=== PATIENT | male | born 1965 | race Two or more races ===

== ENCOUNTER 2024-05-14 05:01 | Inpatient (IN) | payer BC, OTHER ==
[~2024-05-14] VITALS: Ht 172.7 cm; Wt 81.0 kg
[2024-05-14] VITALS (21 sets, daily range): BP systolic 114–153; BP diastolic 81–117; PULSE 82–118; RESP 14–85; TEMP 97.6–98.4; O2SAT 91–98
[2024-05-14] MEDS: ASPirin 81 mg TAB PO ONE (05:25)
[2024-05-14] MEDS: NITROGLYCERIN 0.4 MG SL TAB SL ONE ×2 (05:26→05:29)
[2024-05-14] MEDS: ASPirin 325 MG TAB ONE (05:29)
[2024-05-14] MEDS: HEPARIN SODIUM (PORCINE) 5000 UNITS/ML 1ML VIAL IV ONE (05:31)
[2024-05-14] MEDS: SODIUM CHLORIDE 0.9% 1,000 ML IV ONE (05:35)
[2024-05-14] MEDS: HEPARIN SODIUM (PORCINE) 5000 UNITS/ML 1ML VIAL ONE ×2 (05:39→05:53)
[2024-05-14] MEDS: MIDAZOLAM HCL 2MG/2ML 2ml VIAL (1mg/ml) ONE (05:54)
[2024-05-14] MEDS: fentaNYL CITRATE 100 MCG/2 ML VL ONE (05:54)
[2024-05-14] MEDS: LIDOCAINE 2%HCL (LOCAL ANESTH.) INJ 20ML MDV ONE (05:55)
[2024-05-14] MEDS: VERAPAMIL 2.5MG/ML INJ 2ML VIAL IV ONE (05:55)
[2024-05-14] MEDS: ANGIOMAX 250 MG VIAL IV ONE (05:57)
[2024-05-14] MEDS: SODIUM CHL 0.9% 50 ML ONE (05:57)
[2024-05-14] MEDS: IODIXANOL 320MG/ML 100ML BTL IV ONE (06:21)
[2024-05-14 06:31] LABS: Alanine Aminotransferase 52 U/L (7-40); Albumin 4.8 g/dL (3.2-4.8); Alkaline Phosphatase 112 U/L (46-116); Anion Gap 14 (5-15); Aspartate Aminotransferase 104 U/L (13-40); BUN/Creatinine Ratio 10.3 (10.0-20.0); Bilirubin, Total 0.8 mg/dL (0.2-1.0); Blood Urea Nitrogen 16 mg/dL (9-23); Calcium 10.9 mg/dL (8.7-10.4); Carbon Dioxide 21 mmol/L (20-30); Chloride 97 mmol/L (98-107); Magnesium 2.2 mg/dL (1.6-2.6); Potassium 4.4 mmol/L (3.5-5.1); Sodium 132 mmol/L (136-145); Total Protein 8.2 g/dL (5.7-8.2)
[2024-05-14] MEDS: METOPROLOL TARTRATE 1MG/1ML-5ML VIAL IV ONE (06:33)
[2024-05-14 07:07] LABS: Glucose 432 mg/dL (74-106)
[2024-05-14] MEDS: TICAGRELOR 90 MG TAB ONE (07:12)
[2024-05-14] MEDS ORDERED: NITROGLYCERIN 0.4 MG SL TAB SL PRN (07:30)
[2024-05-14] MEDS ORDERED: MORPHINE SULFATE INJ 2 MG/ml SYRG IV PRN (07:30)
[2024-05-14] MEDS ORDERED: DEXTROSE (50%) 50ML SYRG IV PRN ×2 (07:30→07:45)
[2024-05-14 08:32] LABS: Basophils # (auto) 0 10 ^3/uL (0-0.2); Eosinophils # (auto) 0 10 ^3/uL (0-0.8); Eosinophils % (auto) 0.1 % (0.0-7.0); Monocytes # (auto) 0.6 10 ^3/uL (0-1.3)
[2024-05-14 08:42] LABS: Basophils % (auto) 0.3 % (0.0-2.0); Lymphocytes # (auto) 1.2 10 ^3/uL (0.4-5.4); Lymphocytes % (auto) 8.9 % (10.0-50.0); Mean Corpuscular Hgb Conc. 34.6 g/dL (32.0-36.0); Mean Corpuscular Volume 92.4 fL (80.0-100.0); Monocytes % (auto) 4.1 % (0.0-12.0); Neutrophils # (auto) 12.1 10 ^3/uL (1.6-8.6); Neutrophils % (auto) 86.6 % (37.0-80.0); Nucleated Red Blood Cells % 0.2 %; Platelet Count (auto) 227 10^3/uL (140-450); Red Cell Distribution Width 13.3 % (11.8-14.3); White Blood Cell 13.9 10^3/uL (4.4-10.8)
[2024-05-14 08:45] LABS: Alanine Aminotransferase 63 U/L (7-40); Albumin 4.4 g/dL (3.2-4.8); Alkaline Phosphatase 105 U/L (46-116); Anion Gap 11 (5-15); Aspartate Aminotransferase 279 U/L (13-40); BUN/Creatinine Ratio 7.6 (10.0-20.0); Blood Urea Nitrogen 11 mg/dL (9-23); Calcium 9.8 mg/dL (8.7-10.4); Carbon Dioxide 16 mmol/L (20-30); Chloride 101 mmol/L (98-107); LDL Cholesterol 165 mg/dL (< 100); Sodium 128 mmol/L (136-145); Triglycerides 189 mg/dL (< 150)
[2024-05-14 08:46] LABS: Cholesterol 228 mg/dL (< 200); HDL Cholesterol 41 mg/dL (40-59)
[2024-05-14 08:47] LABS: Bilirubin, Total 0.9 mg/dL (0.2-1.0); Hematocrit 60.9 % (41.0-53.0); Hemoglobin 21.1 g/dL (13.5-17.5); Total Protein 7.9 g/dL (5.7-8.2)
[2024-05-14 08:51] LABS: Potassium 6.3 mmol/L (3.5-5.1)
[2024-05-14 08:52] LABS: Glucose 419 mg/dL (74-106)
[2024-05-14 09:04] LABS: INR 1.76 (0.9-1.15); Partial Thromboplastin Time > 139.0 SEC (24.5-34.5); Prothrombin Time 18.2 sec (9.3-11.8)
[2024-05-14] MEDS: ASPirin 81 mg TAB PO SCH (09:29)
[2024-05-14] MEDS: ATORVASTATIN 20 MG TAB PO ONE (09:29)
[2024-05-14] MEDS: LISINOPRIL 5 MG TAB PO SCH (09:30)
[2024-05-14] MEDS: CARVEDILOL 3.125 MG TAB PO SCH (09:30)
[2024-05-14 11:58] LABS: Alanine Aminotransferase 73 U/L (7-40); Albumin 4.4 g/dL (3.2-4.8); Alkaline Phosphatase 98 U/L (46-116); Anion Gap 11 (5-15); Aspartate Aminotransferase 443 U/L (13-40); BUN/Creatinine Ratio 11.9 (10.0-20.0); Bilirubin, Total 0.7 mg/dL (0.2-1.0); Blood Urea Nitrogen 16 mg/dL (9-23); Calcium 9.5 mg/dL (8.7-10.4); Carbon Dioxide 17 mmol/L (20-30); Chloride 102 mmol/L (98-107); Glucose 365 mg/dL (74-106); Sodium 130 mmol/L (136-145); Total Protein 7.5 g/dL (5.7-8.2)
[2024-05-14] MEDS ORDERED: ACCU-CHEK COMFORT CURVE STRIP VI SCH (12:00)
[2024-05-14] MEDS ORDERED: InsuLIN REG 1unit/0.01ml Soln (100units/ml) SC SCH (12:00)
[2024-05-14] MEDS: ACCU-CHEK COMFORT CURVE STRIP VI SCH (12:15)
[2024-05-14] MEDS: InsuLIN REG 1unit/0.01ml Soln (100units/ml) SC SCH ×2 (12:18→22:10)
[2024-05-14] MEDS ORDERED: LISI20TA56 PO (18:09)
[2024-05-14] MEDS ORDERED: METF-372 PO (18:09)
[2024-05-14] MEDS ORDERED: GLIP10TA9 PO (18:09)
[2024-05-14 19:51] LABS: Basophils # (auto) 0.1 10 ^3/uL (0-0.2); Basophils % (auto) 0.6 % (0.0-2.0); Eosinophils # (auto) 0.1 10 ^3/uL (0-0.8); Eosinophils % (auto) 0.8 % (0.0-7.0); Hemoglobin 20.5 g/dL (13.5-17.5); Lymphocytes # (auto) 2.3 10 ^3/uL (0.4-5.4); Lymphocytes % (auto) 19.6 % (10.0-50.0); Mean Corpuscular Hgb Conc. 34.5 g/dL (32.0-36.0); Monocytes # (auto) 1.1 10 ^3/uL (0-1.3); Monocytes % (auto) 9.5 % (0.0-12.0); Neutrophils # (auto) 8.3 10 ^3/uL (1.6-8.6); Neutrophils % (auto) 69.5 % (37.0-80.0); Nucleated Red Blood Cells % 0.2 %; Platelet Count (auto) 227 10^3/uL (140-450); Red Blood Cells 6.62 10^6/uL (4.5-5.90); Red Cell Distribution Width 13.4 % (11.8-14.3); White Blood Cell 11.9 10^3/uL (4.4-10.8)
[2024-05-14 19:52] LABS: Hematocrit 59.5 % (41.0-53.0)
[2024-05-14 20:10] LABS: Alanine Aminotransferase 81 U/L (7-40); Albumin 4.2 g/dL (3.2-4.8); Alkaline Phosphatase 93 U/L (46-116); Anion Gap 8 (5-15); Aspartate Aminotransferase 400 U/L (13-40); BUN/Creatinine Ratio 12.9 (10.0-20.0); Blood Urea Nitrogen 18 mg/dL (9-23); Carbon Dioxide 22 mmol/L (20-30); Chloride 102 mmol/L (98-107); Glucose 281 mg/dL (74-106); Sodium 132 mmol/L (136-145)
[2024-05-14 20:11] LABS: Bilirubin, Total 0.9 mg/dL (0.2-1.0); Total Protein 7.3 g/dL (5.7-8.2)
[2024-05-15] VITALS (7 sets, daily range): BP systolic 112–144; BP diastolic 70–91; PULSE 82–113; RESP 17–19; TEMP 97.8–98.6; O2SAT 95–98
[2024-05-15] MEDS: PANTOPRAZOLE 40 MG TAB PO SCH (06:28)
[2024-05-15 09:20] LABS: Basophils # (auto) 0 10 ^3/uL (0-0.2); Basophils % (auto) 0.4 % (0.0-2.0); Eosinophils # (auto) 0.2 10 ^3/uL (0-0.8); Eosinophils % (auto) 1.4 % (0.0-7.0); Hemoglobin 20.2 g/dL (13.5-17.5); Lymphocytes # (auto) 2.7 10 ^3/uL (0.4-5.4); Lymphocytes % (auto) 25.4 % (10.0-50.0); Mean Corpuscular Hemoglobin 31.5 pg (28.0-32.0); Mean Corpuscular Hgb Conc. 34.5 g/dL (32.0-36.0); Mean Corpuscular Volume 91.5 fL (80.0-100.0); Monocytes # (auto) 1.2 10 ^3/uL (0-1.3); Neutrophils # (auto) 6.6 10 ^3/uL (1.6-8.6); Neutrophils % (auto) 61.8 % (37.0-80.0); Nucleated Red Blood Cells % 0.2 %; Platelet Count (auto) 209 10^3/uL (140-450); Red Blood Cells 6.41 10^6/uL (4.5-5.90); Red Cell Distribution Width 13.5 % (11.8-14.3); White Blood Cell 10.7 10^3/uL (4.4-10.8)
[2024-05-15 09:23] LABS: Hematocrit 58.7 % (41.0-53.0)
[2024-05-15] MEDS: TICAGRELOR 90 MG TAB PO SCH (09:41)
[2024-05-15] MEDS: ATORVASTATIN 20 MG TAB PO SCH (09:44)
[2024-05-16] VITALS (8 sets, daily range): BP systolic 109–146; BP diastolic 78–93; PULSE 84–109; RESP 16–20; TEMP 98–98.6; O2SAT 93–99
[2024-05-16] MEDS ORDERED: CARV-214 PO (11:13)
[2024-05-16] MEDS ORDERED: ASPI-325 PO (11:13)
[2024-05-16] MEDS ORDERED: TICA90TA PO (11:13)
[2024-05-16] MEDS ORDERED: LISI20TA56 PO (11:13)
[2024-05-16] MEDS ORDERED: ATOR20TA50 PO (11:13)
[2024-05-16] MEDS ORDERED: ATOR-507 PO (16:19)
[2024-05-17] VITALS (8 sets, daily range): BP systolic 111–131; BP diastolic 81–94; PULSE 70–97; RESP 16–18; TEMP 97.7–98.4; O2SAT 95–99
[2024-05-18] VITALS (8 sets, daily range): BP systolic 125–153; BP diastolic 88–98; PULSE 76–96; RESP 16–18; TEMP 97.6–98.6; O2SAT 96–100
[2024-05-19] VITALS (9 sets, daily range): BP systolic 129–158; BP diastolic 92–109; PULSE 78–106; RESP 16–18; TEMP 97.6–98.6; O2SAT 96–100
[2024-05-19] MEDS: LISINOPRIL 5 MG TAB PO ONE (12:37)
[2024-05-19 13:27] LABS: Eosinophils # (auto) 0.2 10 ^3/uL (0-0.8); Lymphocytes # (auto) 1.4 10 ^3/uL (0.4-5.4); Monocytes # (auto) 0.9 10 ^3/uL (0-1.3); Monocytes % (auto) 13.3 % (0.0-12.0); Neutrophils # (auto) 4.2 10 ^3/uL (1.6-8.6)
[2024-05-19 13:30] LABS: Basophils # (auto) 0.1 10 ^3/uL (0-0.2); Basophils % (auto) 0.8 % (0.0-2.0); Eosinophils % (auto) 2.5 % (0.0-7.0); Hematocrit 53.8 % (41.0-53.0); Hemoglobin 18.7 g/dL (13.5-17.5); Lymphocytes % (auto) 21.3 % (10.0-50.0); Mean Corpuscular Hemoglobin 32.1 pg (28.0-32.0); Mean Corpuscular Hgb Conc. 34.7 g/dL (32.0-36.0); Mean Corpuscular Volume 92.5 fL (80.0-100.0); Neutrophils % (auto) 62.1 % (37.0-80.0); Nucleated Red Blood Cells % 0.1 %; Platelet Count (auto) 191 10^3/uL (140-450); Red Blood Cells 5.81 10^6/uL (4.5-5.90); Red Cell Distribution Width 13.2 % (11.8-14.3); White Blood Cell 6.8 10^3/uL (4.4-10.8)
[2024-05-19 13:38] LABS: Chloride 103 mmol/L (98-107); Potassium 4.5 mmol/L (3.5-5.1); Sodium 133 mmol/L (136-145)
[2024-05-19 13:39] LABS: Anion Gap 6 (5-15); Calcium 9.3 mg/dL (8.7-10.4); Carbon Dioxide 24 mmol/L (20-30)
[2024-05-19 13:44] LABS: BUN/Creatinine Ratio 9.8 (10.0-20.0); Blood Urea Nitrogen 13 mg/dL (9-23); Glucose 256 mg/dL (74-106)
[2024-05-19] MEDS: CARVEDILOL 3.125 MG TAB PO SCH (21:28)
[2024-05-20] VITALS (8 sets, daily range): BP systolic 118–144; BP diastolic 67–103; PULSE 69–90; RESP 16–18; TEMP 36.9–37.1; O2SAT 94–99
[2024-05-20] MEDS: LISINOPRIL 5 MG TAB PO SCH (08:44)
== END 2024-05-20 14:53 | disposition home or self-care (01) | DRG 322 ==
LOC: ER 05:01 → TELE 07:25 → TELE-CENTR 17:55
PROVIDERS: ADMIT Internal Medicine; ATTEND Internal Medicine Geriatric Medicine
PROC: 027236Z Dilation of Coronary Artery, Three Arteries with Three Drug-eluting Intraluminal Devices, Percutaneous Approach (ICD-10-PCS; principal; 2024-05-14)
PROC: B211YZZ Fluoroscopy of Multiple Coronary Arteries using Other Contrast (ICD-10-PCS; 2024-05-14)
PROC: B215YZZ Fluoroscopy of Left Heart using Other Contrast (ICD-10-PCS; 2024-05-14)
PROC: 4A023N7 Measurement of Cardiac Sampling and Pressure, Left Heart, Percutaneous Approach (ICD-10-PCS; 2024-05-14)
PROC: 3E03317 Introduction of Other Thrombolytic into Peripheral Vein, Percutaneous Approach (ICD-10-PCS; 2024-05-14)
DX: I21.09 ST elevation (STEMI) myocardial infarction involving other coronary artery of anterior wall (principal); I25.10 Atherosclerotic heart disease of native coronary artery without angina pectoris; E11.9 Type 2 diabetes mellitus without complications; F17.210 Nicotine dependence, cigarettes, uncomplicated; I10 Essential (primary) hypertension; E78.5 Hyperlipidemia, unspecified; I25.5 Ischemic cardiomyopathy; Z82.49 Family history of ischemic heart disease and other diseases of the circulatory system
CPT/HCPCS: 0523T; 92928; 92941; 93458; 99291; 36415; 71045; 80048; 80053; 80061; 82962; 83036; 83735; 83880; 84443; 84484; 85025; 85610; 85730; 93005; 93306; 99152; C1874; C1887; G0378; J1815; J2250; Q9967

== ENCOUNTER 2024-10-10 10:46 | Emergency (ER) | payer BC ==
[~2024-10-10] VITALS: Ht 172.7 cm; Wt 80.7 kg
[~2024-10-10 10:46] MED LIST: ASPI-325 PO; ATOR-507 PO; CARV-214 PO; GLIP10TA9 PO; LISI20TA56 PO; METF-372 PO; TICA90TA PO
--- NOTE | 2024-10-10 11:17 | ED.PDOC ---
HPI Comments 59 y.o male with PMHx of HTN, hyperlipidemia, DM, and ME, presents to the ED for an evaluation of high blood pressure. Patient was at his PCP's office today for a follow up s/p ME in 05/2024, was told his blood pressure was at 187/118 associated with facial drooping and was sent to the ED for high level of care. Upon ED arrival, patient presents with no facial drooping, dizziness, headaches, vision changes, chest pain, SOB, confusion, nausea, or vomiting. Patient does mention having intermittent nosebleeds this past week with last episode noted to be 2 days ago. Patient is on Brilinta. Blood pressure at ED read 189/117. Patient too his Lisinopril today at 0900. Time Seen by MD: 11:05 Reviewed Notes: Nurses Notes, Medications, Allergies Allergies: Coded Allergies: NO KNOWN ALLERGIES (Unverified , 05/14/24) Home Meds Active Scripts Atorvastatin Calcium (Lipitor) 40 Mg Tab, 1 TAB PO QPM, #90 TAB 1 Refill Prov:JEROMY SANCHEZ MD 05/16/24 Ticagrelor Base (BRILINTA) 90 Mg Tab, 90 MG PO BID, #60 TAB 5 Refills Prov:JEROMY SANCHEZ MD 05/16/24 Lisinopril (Lisinopril) 20 Mg Tab, 0.5 TAB PO DAILY, #30 TAB 5 Refills Prov:JEROMY SANCHEZ MD 05/16/24 Carvedilol (COREG) 3.125 Mg Tab, 3.125 MG PO DAILY, #30 TAB 5 Refills Prov:JEROMY SANCHEZ MD 05/16/24 Aspirin (Aspirin Low Dose) 81 Mg Tab, 81 MG PO DAILY, #30 TAB 5 Refills Prov:JEROMY SANCHEZ MD 05/16/24 Reported Medications Metformin Hydrochloride (Metformin Hcl) 1,000 Mg Tab, 1 TAB PO BID 05/14/24 Glipizide (Glipizide) 10 Mg Tab, 1 TAB PO BID 05/14/24 Information Source: Patient Mode of Arrival: Ambulatory Severity: Mild Timing: Hours Duration: Since onset Onset: Other Cardiac Risk Factors: Hyperlipidemia, HTN, Diabetes PE Risk Factors: None History of: ME Modifying Factors: Nothing Associated Signs and Symptoms: None Past Medical History PAST MEDICAL HISTORY: DM, High Lipids, HTN, ME Surgical History: PTCA Family History Family History: Reviewed,noncontributory to illness, No family hx of Cancer, No family hx of DM, No family hx of Heart [place], No family hx of HTN, No family hx ofKidney [place], No family hx of Liver [place], No family hx of Lung [place], No family hx of Stroke Social History Smoker: Non-Smoker Alcohol: Occasionally Drugs: Denies Drug Use Lives In: Home Constitutional: denies: chills, diaphoresis, fatigue, fever, malaise, sweats, weakness, others EENTM: reports: nose bleeding; denies: blurred vision, double vision, ear bleeding, ear discharge, ear drainage, ear pain, ear ringing, eye pain, eye redness, hearing loss, mouth pain, mouth swelling, nasal discharge, nose congestion, nose pain, photophobia, tearing, throat pain, throat swelling, voice changes, others Respiratory: denies: cough, hemoptysis, orthopnea, SOB at rest, shortness of breath, SOB with excertion, stridor, wheezing, others Cardiovascular: denies: chest pain, dizzy spells, diaphoresis, Dyspnea on exertion, edema, irregular heart beat, left arm pain, lightheadedness, palpitati ons, PND, syncope, others Gastrointestinal: denies: abdomen distended, abdominal pain, blood streaked bowels, constipated, diarrhea, dysphagia, difficulty swallowing, hematemesis, melena, nausea, poor appetite, poor fluid intake, rectal bleeding, rectal pain, vomiting, others Genitourinary: denies: burning, dysuria, flank pain, frequency, hematuria, incontinence, penile discharge, penile sore, pain, testicle pain, testicle swelling, urgency, others Neurological: denies: dizziness, fainting, headache, left sided numbness, left sided weakness, numbness, paresthesia, pre-existing deficit, right sided numbness, right sided weakness, seizure, speech problems, tingling, tremors, weakness, others Musculoskeletal: denies: back pain, gout, joint pain, joint swelling, muscle pain, muscle stiffness, neck pain, others Integumetry: denies: bruises, change in color, change in hair/nails, dryness, laceration, lesions, lumps, rash, wounds, others Allergic/Immunocompromised: denies: Difficulty Healing, Frequent Infections, Hives, Itching, others Hematologic/Lymphatic: denies: anemia, blood clots, easy bleeding, easy bruising, swollen glands, others Endocrine: denies: excessive hunger, excessive sweating, excessive thirst, excessive urination, flushing, intolerance to cold, intolerance to heat, unexplained weight gain, unexplained weight loss, others Psychiatric: denies: anxiety, bipolar disorder, depression, hopeless, panic disorder, schizophrenia, sleepless, suicidal, others All Other Systems: Reviewed and Negative Physical Exam General Appearance: No Apparent Distress HEENT: Normal ENT Inspection, Pharynx Normal, TMs Normal Neck: Full Range of Motion, Non-Tender, Normal, Normal Inspection Respiratory: Chest Non-Tender, Lungs Clear, No Accessory Muscle Use, No Respiratory Distress, Normal Breath Sounds Cardiovascular: No Edema, No JVD, No Murmur, No Gallop, Normal Peripheral Pulses, Regular Rate/Rhythm Breast Exam: Deferred Gastrointestinal: No Organomegaly, Non Tender, No Pulsatile Mass, Normal Bowel Sounds, Soft Genitalia: Deferred Pelvic: Deferred Rectal: Deferred Extremities: No calf tenderness, Normal capillary refill, Normal inspection, Normal range of motion, Non-tender, No pedal edema Musculoskeletal : Apperance: Normal Neurologic: Alert, manager technical II-XII nml as Tested, No Motor Deficits, Normal Affect, Normal Mood, No Sensory Deficits Cerebellar Function: Normal Reflexes: Normal Skin: Dry, Normal Color, Warm Lymphatic: No Adenopathy Was a procedure done? Was a procedure done?: No CP Differential Dx Differential Diagnosis: N/A Differential Diagnosis: HTN Essential, HTN Accelerated X-Ray, Labs, Meds, VS Vital Signs Date Time Temp Pulse Resp B/P (MAP) Pulse Ox O2 Delivery O2 Flow Rate FiO2 10/10/24 11:24 197/119 10/10/24 11:21 98.7 84 18 189/117 (141) 98 10/10/24 11:20 97.8 86 12 196/118 (144) 96 97.8 10/10/24 11:20 86 16 98 Room Air* 0 21 Current Medications Medications (Trade) Dose Ordered Sig/Jane Route Start Time Stop Time Status Last Admin Clonidine HCl (Catapres Tablet) 0.2 mg ONCE ONCE PO 10/10/24 11:15 10/10/24 11:16 DC 10/10/24 11:24 Scan of the head is negative The patient was given clonidine 0.2 mg by mouth We did contact the patient's primary care doctor and he is going to adjust the patient's medications The patient was being discharged at this time The patient will follow up with the primary care doctor The patient will return to the emergency department's condition worsens. Images Reviewed?: Images reviewed and evaluated by me Time of 1ST Reevaluation: 11:12 Reevaluation 1ST: Unchanged Patient Education/Counseling: Diagnosis, Treatment, Prognosis, Need For Follow Up Family Education/Counseling: No Family Present Departure 1 Departure Time of Disposition: 11:57 Impression: Primary Impression: Hypertensive urgency Disposition: 01 HOME / SELF CARE / HOMELESS Condition: Fair Discharged With: Self Critical Care Note Critical Care Time?: No Stability Stability form required: No I personally scribed for GREY LING MD ([email or web address]) on 10/10/24 at 11:17. Electronically submitted by Latrice Duncan ([facility]). GREY LING MD Oct 10, 2024 11:17
[2024-10-10 11:20] VITALS: PULSE 86; RESP 16; O2SAT 98
[2024-10-10] MEDS: cloNIDine HCL 0.1 MG TAB PO ONE (11:24)
--- NOTE | 2024-10-10 11:48 | DVH ---
CT HEAD WITHOUT CONTRAST INDICATION: high bp facial droop EXAM DATE: 10/10/2024 11:25 AM COMPARISON: None RADIATION DOSE: CTDIvol: 60 mGy, DLP: 962 mGy*cm PROCEDURE: CT scans of the head were obtained from the vertex to the skull base. Sagittal and coronal reconstructions were provided. All CT scans at this medical facility are performed using dose modulation techniques as appropriate t o a performed exam including the following: Automated exposure control was utilized; adjustment of th e MA and/or KV according to patient size; and use of iterative reconstruction technique. FINDINGS: There is sulcal and ventricular prominence. The brainshows normal morphology and posadas-whi te matter differentiation, without intracranial hemorrhage, extra-axial fluid collection, mass effect or acute large vessel infarct. The ventricles are normal in size. The basal cisterns are patent. The skull and visible facial bones are intact. The paranasal sinuses, mastoid air cells and middle ear c avities are well-aerated. The soft tissues of the scalp are unremarkable. IMPRESSION: No acute intracranial abnormality.
[2024-10-10 12:06] VITALS: BP 153/97; PULSE 91; RESP 16; TEMP 98.2; O2SAT 98
== END 2024-10-10 12:08 | disposition home or self-care (01) ==
LOC: ER 10:46
DX: I16.0 Hypertensive urgency (principal); E11.9 Type 2 diabetes mellitus without complications; E78.5 Hyperlipidemia, unspecified; I10 Essential (primary) hypertension; Z98.890 Other specified postprocedural states; Z79.899 Other long term (current) drug therapy; Z79.84 Long term (current) use of oral hypoglycemic drugs
CPT/HCPCS: 70450

== ENCOUNTER 2025-05-25 13:11 | Outpatient (CLI) | payer BC ==
[2025-05-25 13:56] LABS: Chloride 105 mmol/L (98-107); Potassium 5.0 mmol/L (3.5-5.1); Sodium 141 mmol/L (136-145)
[2025-05-25 13:57] LABS: Anion Gap 10 (5-15); Calcium 9.5 mg/dL (8.7-10.4); Carbon Dioxide 26 mmol/L (20-31)
[2025-05-25 14:02] LABS: BUN/Creatinine Ratio 8.9 (10.0-20.0); Blood Urea Nitrogen 13 mg/dL (9-23); Triglycerides 139 mg/dL (< 150)
[2025-05-25 14:04] LABS: Cholesterol 148 mg/dL (< 200); HDL Cholesterol 46 mg/dL (40-59)
[2025-05-25 14:05] LABS: Glucose 166 mg/dL (74-106)
== END 2025-05-25 17:00 | disposition home or self-care (01) ==
LOC: LAB 13:11
PROVIDERS: ATTEND Internal Medicine
DX: E11.22 Type 2 diabetes mellitus with diabetic chronic kidney disease (principal); N18.2 Chronic kidney disease, stage 2 (mild); E11.69 Type 2 diabetes mellitus with other specified complication; E78.5 Hyperlipidemia, unspecified
CPT/HCPCS: 36415; 80048; 80061; 83036

== ENCOUNTER 2025-06-04 09:00 | Outpatient (CLI) | payer BC ==
[~2025-06-04] VITALS: Ht 172.7 cm; Wt 74.8 kg
[2025-06-04] MEDS: REGADENOSON 0.4 MG/5 ML SYRG IV ONE ×2 (10:59→11:00)
--- NOTE | 2025-06-06 12:08 | DVHSR ---
APPROVED REPORT Exam: Nuclear Stress Test BMI: 0 Stress Test Details Stress Test: Pharmacologic stress testing performed using 0.4 mg of regadenoson per 5 mL given IV ov er 10 seconds. HR Resting HR: 70 bpmMax Heart Rate (APMHR): 160.591873 bpm Max HR Achieved: 105 bpmTarget HR (85% APMHR): 136.514677 bpm % of APMHR: 65.63 Recovery HR: 83 bpm BP Resting BP: 141/85 mmHg Recovery BP: 147/99 mmHg ECG Resting ECG: Sinus Rhythm Nurse Comments Recieved pt. from [employer]. A/Ox4 on RA. Connected to court monitor, VS stable. PIV flushes well. Re viewed POC. Pt. verbalized understanding of procedure including risks and side effects, agrees for st ress testing. Lexiscan stress test performed per protocol. [employer] tech administered Cardiolite. Pt. tolerated well . Pt. stable, no change on exam. VS returned to baseline. Transferred to [employer] via wheelchair w/ te ch. Stress ECG Conclusion lvef 48% large infero septal and infero infarct with adi infarct ischemia noted abnormal study NM EXAM: Myocardial Perfusion REST/STRESS Imaging Protocol: Rest Tc-99m/Stress Tc-99m 1 day Resting Data Rest SPECT myocardial perfusion imaging was performed in supine position 60 minutes following the int ravenous injection of 10.9 mCi of Tc-99m Sestamibi. Time of rest injection: 1000 Time of rest imagin Administration Route: IV Administration Site: Right Hand Pharmacologic Stress Pharmacologic stress test was performed by injecting Regadenoson 0.4 mg IV push followed by the intra venous injection of 32.5 mCi of Tc-99m Sestamibi. Time of stress injection: 1115 Time of stress imagin Administration Route: IV Administration Site: Right Hand Gated Stress SPECT was performed 65 minutes after stress injection. The images were gated to evaluate regional wall motion and calculate left ventricular ejection fracti on. Nuclear Conclusion Nuclear Findings: positive for ischemia lvef 48% large infero septal and infero infarct with adi infarct ischemia noted abnormal study
== END 2025-06-04 17:00 | disposition home or self-care (01) ==
LOC: XYW 09:00
PROVIDERS: ATTEND Internal Medicine
DX: I25.9 Chronic ischemic heart disease, unspecified (principal); I50.20 Unspecified systolic (congestive) heart failure
CPT/HCPCS: 78452; 93017; A9500; J2785

== ENCOUNTER 2025-07-17 09:24 | Outpatient (CLI) | payer BC ==
[2025-07-17 10:31] LABS: Chloride 103 mmol/L (98-107); Potassium 4.4 mmol/L (3.5-5.1); Sodium 139 mmol/L (136-145)
[2025-07-17 10:32] LABS: Anion Gap 11 (5-15); Calcium 9.2 mg/dL (8.7-10.4); Carbon Dioxide 25 mmol/L (20-31)
[2025-07-17 10:37] LABS: BUN/Creatinine Ratio 9.0 (10.0-20.0); Blood Urea Nitrogen 14 mg/dL (9-23)
[2025-07-17 10:40] LABS: Glucose 152 mg/dL (74-106)
== END 2025-07-17 17:00 | disposition home or self-care (01) ==
LOC: LAB 09:24
PROVIDERS: ATTEND Internal Medicine
DX: I11.0 Hypertensive heart disease with heart failure (principal); I50.9 Heart failure, unspecified; E11.69 Type 2 diabetes mellitus with other specified complication
CPT/HCPCS: 36415; 80048